=== PATIENT | female | born 1990 | race Caucasian/White ===

== ENCOUNTER 2018-02-05 21:16 | Inpatient (IN) | payer OTHER ==
[2018-02-06 01:05] VITALS: BMI 33.8
[2018-02-06] MEDS ORDERED: TUBERCULIN PPD 5 TU/0.1ML SYRINGE (IN PATIENT USE ONLY) ID ONE ×2 (01:14→09:00)
[2018-02-06] MEDS ORDERED: D5-1/4NS+20 MEQ KCL - 20 MEQ/1,000 ML INFUS.BAG IV ONE (02:16)
[2018-02-06] MEDS ORDERED: DEXTROSE 5%-LACTATED RINGERS 1,000 ML IV ONE (02:17)
[2018-02-06 02:21] LABS: BASO % 0.2 % (0-2.0); EOS % 0.3 % (0-4.5); HEMATOCRIT 36.9 % (32.4-45.2); LYMPH % 16.8 % (8-40); MCH 26.5 pg (25.7-33.7); MCHC 32.5 g/dl (32.0-36.0); MEAN CELL VOLUME 81.7 fl (80-96); MONO % 4.6 % (3.8-10.2); NEUT % 78.1 % (42.8-82.8); PLATELET COUNT 243 K/MM3 (134-434); RBC 4.52 M/mm3 (3.60-5.2); RDW 15.1 % (11.6-15.6); WHITE BLOOD COUNT 11.9 K/mm3 (4.0-10.0)
[2018-02-06] MEDS ORDERED: PROMETHAZINE HCL 25 MG/1 ML VIAL IVPUSH ONE (02:30)
[2018-02-06] MEDS ORDERED: BUTORPHANOL TARTRATE 1 MG/ML VIAL IVPUSH ONE (02:30)
[2018-02-06] MEDS ORDERED: DEXTROSE 5%-LACTATED RINGERS 1,000 ML IV SCH ×2 (02:36→13:15)
[2018-02-06 02:46] LABS: INR 0.92 (0.82-1.09); PROTHROMBIN TIME (PATIENT) 10.4 SEC (9.7-13.0)
[2018-02-06 02:49] LABS: ACTIVATED PTT 30.2 SECONDS (26.9-34.4)
[2018-02-06 02:55] LABS: ANION GAP 10 (8-16); BLOOD UREA NITROGEN 7 mg/dL (7-18); CALCIUM 8.5 mg/dL (8.5-10.1); CHLORIDE 107 mmol/L (98-107); CO2 22 mmol/L (21-32); CREATININE 0.5 mg/dL (0.55-1.02); GLUCOSE,RANDOM 87 mg/dL (74-106); POTASSIUM 3.7 mmol/L (3.5-5.1); SODIUM 139 mmol/L (136-145)
[2018-02-06] MEDS ORDERED: PROMETHAZINE HCL 25 MG/1 ML VIAL ONE (03:00)
[2018-02-06] MEDS ORDERED: BUTORPHANOL TARTRATE 1 MG/ML VIAL ONE ×2 (03:00)
[2018-02-06] MEDS ORDERED: ELECTROLYTE-148 SOLN 1,000 ML IV ONE (06:39)
[2018-02-06] MEDS ORDERED: ELECTROLYTE-148 SOLN 1,000 ML IV SCH (06:57)
[2018-02-06] MEDS ORDERED: NALOXONE HCL 0.4 MG/ML VIAL IVPUSH PRN (07:03)
[2018-02-06] MEDS ORDERED: BUPIVACAINE HCL/PF 0.25% (2.5MG/ML) 10 ML VIAL ONE (07:05)
[2018-02-06] MEDS ORDERED: LIDO 2%/EPI 1:200000 PRESRVFRE (20 ML SDVIAL) ONE (07:05)
[2018-02-06] MEDS ORDERED: FENTANYL/BUPIVACAINE/NS/PF - PCEA - 50 ML DISP.SYRIN EP ONE ×2 (07:06→11:20)
[2018-02-06] MEDS: FENTANYL/BUPIVACAINE/NS/PF - PCEA - 50 ML DISP.SYRIN EP SCH (07:25)
[2018-02-06] MEDS ORDERED: ePHEDrine SULFATE 50 MG/1 ML AMPULE ONE (07:27)
--- NOTE | 2018-02-06 09:34 | HP ---
Past Medical History - Primary Care Physician PCP:: Shakir Rice - Admission Chief Complaint: 27yo P0 with pregancy at EGA 40w1d admitted last night in early spontaneous labor with due to maternal exhaustion with multiple L&D visits. History of Present Illness: Pt with post term at EGA 40w1 who reports painful contractions x 2-3 days. GBS (-) Pt was initially given Stadol/Phenergan for pain mgt. The pt was then given an epidural at ~7:30am. The pt's FHR became tachycardic at about 8am and is still with baseline 180bpm History Source: Patient, Medical Record Limitations to Obtaining History: No Limitations - Past Medical History ...: 1 ...Para: 0 ...Term: 0 ...: 0 ...Spon : 0 ...Induced : 0 ...Multiple Gestation: 0 ...LMP: 04/23/17 ... Weeks Gestation by Dates: 40.1 ...EDC by Sono: 02/05/18 Heme/Onc: No: Anemia, B12 Deficiency, Bleeding Disorder, Cancer, Current Chemotherapy, Current Radiation Therapy, Hemochromatosis, Hypercoaguable State, Myeloproliferative Synd, Sickle Cell Disease, Sickle Cell Trait, Thrombocytopenia, Other Infectious Disease: No: AIDS, C-Diff, Herpes Zoster, HIV, MRSA, STD's, Tuberculosis, VREF, Other Psych: No: Addictions, Anxiety, Bipolar, Depression, Panic, Psychosis, Schizophrenia, Other Musculoskeletal: No: Bursitis, Chronic low back pain, Hemiparesis, Hemiplegia, Osteoarthritis, Paraplegia, Other Rheumatology: No: Fibromyalgia, Gout, Lupus, Rheumatoid Arthritis, Sarcoidosis, Vasculitis, Other ENT: No: Allergic Rhinitis, Sinusitis, Other Endocrine: No: Camden's Disease, Simpson's Disease, Diabetes Insipidus, Diabetes Mellitus, Hyperparathyroidism, Hyperthyroidism, Hypothyroidism, Osteopenia, SIADH, Other Dermatology: No: Basal Cell, Cellulitis, Eczema, Melanoma, Psoriasis, Squamous Cell, Other - Past Surgical History Past Surgical History: Yes: None Hx Myomectomy: No Hx Transabdominal Cerclage: No - Smoking History Smoking history: Never smoked Have you smoked in the past 12 months: No - Alcohol/Substance Use Hx Alcohol Use: No History of Substance Use: reports: None - Social History Usual Living Arrangement: Yes: With Spouse ADL: Independent History of Recent Travel: No Home Medications - Allergies Allergies/Adverse Reactions: Allergies Allergy/AdvReac Type Severity Reaction Status Date / Time No Known Allergies Allergy Verified 02/06/18 09:28 - Home Medications Home Medications: Ambulatory Orders Vit No.130/Iron/Folic [ Vitamins] 1 each PO DAILY 02/03/18 Family Disease History - Family Disease History Family History: Denies Review of Systems Findings/Remarks: Pt is comfortable s/p epidural - Review of Systems Constitutional: reports: No Symptoms Eyes: reports: No Symptoms HENT: reports: No Symptoms Neck: reports: No Symptoms Cardiovascular: reports: No Symptoms Respiratory: reports: No Symptoms Gastrointestinal: reports: No Symptoms Genitourinary: reports: No Symptoms Breasts: reports: No Symptoms Reported Musculoskeletal: reports: No Symptoms Integumentary: reports: No Symptoms Neurological: reports: No Symptoms Endocrine: reports: No Symptoms Hematology/Lymphatic: reports: No Symptoms Psychiatric: reports: No Symptoms Pain Intensity: 0 Physical Exam - Maternity Vital Signs: Vital Signs Temperature 98.1 F 02/06/18 06:00 Pulse Rate 82 02/06/18 07:45 Respiratory Rate 18 02/06/18 07:45 Blood Pressure 102/47 02/06/18 07:45 O2 Sat by Pulse Oximetry (%) 99 02/06/18 07:45 Constitutional: Yes: Well Nourished, No Distress, Calm Eyes: Yes: WNL, Conjunctiva Clear, EOM Intact HENT: Yes: WNL, Atraumatic, Normocephalic Neck: Yes: WNL, Supple, Trachea Midline Cardiovascular: Yes: WNL, Regular Rate and Rhythm Lungs: Clear to auscultation, Normal air movement - Abdominal Exam/OB Fundal Height: 40 Number of Fetuses: Single Presentation: Vertex Contractions: Yes Regularity: Regular Intensity: Mild/Mod (q4min) Monitor Mode: Internal Heart Rate (range): 180 Heart Rate Location: Midline Category: I Accelerations: None Decelerations: None - Vaginal Exam/OB Vaginal Bleediing: No Speculum Exam: No Dilatation (cm): 2 Effacement (%): 80 Amniotic Membrane Status: Ruptured (AROM) Amniotic Fluid: Yes: Meconium Stained Meconium: Light Presentation: Vertex/Position Station: -3 (Adequate pelvimetry) - Physical Exam Musculoskeletal: Yes: WNL Extremities: Yes: WNL Edema: Yes Edema: LLE: Trace, RLE: Trace Integumentary: Yes: WNL Deep Tendon Reflex Grade: Normal +2 ...Motor Strength: WNL Psychiatric: Yes: WNL, Alert, Oriented - Labs Lab Results: CBC, BMP 02/06/18 01:00 02/06/18 01:00 Hemorrhage Risk Assessment - Risk Factors Medium Risk Factors: Yes: None High Risk Factors: Yes: None Risk Score: 1 Risk Level: Medium Risk Imaging - Results Ultrasound: Report Reviewed Other: Other (FHR with baseline 180bpm, moderate variability, occasional accels , no decels) Assessment/Plan 27yo P0 with at EGA 40w1d admitted last night in early spontaneous labor due to maternal exhaustion with multiple L&D visits. 1. Patient is comfortable with epidural 2. Fetus with tachycardia, category II tracing. AROM was done and light meconium was noted. FSE was placed. The pt was given IV fluid bolus and O2 by mask. Plan to monitor for labor progress and tracing. If the FHT remains tachycardic and there is no labor progress, plan to offer a C/S. 3. Labor in in latent phase.
--- NOTE | 2018-02-06 12:11 | PN ---
Progress Note (short form) - Note Progress Note: cx 3 cm 80 vx -3 mr, fhr 180, mild variable , advised c/s in view of persistent tachycardia, rba discussed
[2018-02-06] MEDS ORDERED: ceFAZolin SODIUM 1 GM VIAL ONE (12:17)
[2018-02-06] MEDS ORDERED: morphine SULFATE/Preservative Free 0.5 MG/ML (1cc Syringe) ONE (12:17)
[2018-02-06] MEDS ORDERED: DEXAMETHASONE SOD PHOSPHATE 4 MG/1 ML VIAL ONE (12:48)
[2018-02-06] MEDS ORDERED: diphenhydrAMINE HCL 25 MG CAPSULE (FP) PO PRN (13:06)
[2018-02-06] MEDS ORDERED: BENZOCAINE 20% 57 GM BOTTLE TP PRN (13:06)
[2018-02-06] MEDS ORDERED: METHYLERGONOVINE MALEATE 0.2 MG/1 ML AMP IM PRN (13:06)
[2018-02-06] MEDS ORDERED: IBUPROFEN 800 MG/8 ML IJ IVPB PRN (13:06)
[2018-02-06] MEDS ORDERED: BENZOCAINE 28 GM HEMORRHOIDAL OINTMENT PR PRN (13:06)
[2018-02-06] MEDS ORDERED: oxyCODONE HCL 5 MG TABLET PO PRN (13:06)
[2018-02-06] MEDS ORDERED: WITCH HAZEL 50% (TUCKS) 40 PAD/JAR PAD TP PRN (13:06)
[2018-02-06] MEDS ORDERED: OXYTOCIN 20 UNITS in 0.9% NS 20 UNIT/1,000 ML INFUS.BAG IV SCH (13:15)
[2018-02-06] MEDS ORDERED: ONDANSETRON 4 MG/2 ML VIAL IVPUSH PRN (13:38)
[2018-02-06 13:45] LABS: ARTERIAL BLOOD GAS BASE EXCESS -0.5 meq/l (-2-2); ARTERIAL BLOOD GAS PCO2 57.8 mmHg (35-45); ARTERIAL BLOOD GAS PO2 11.2 mmHg (80-100); ARTERIAL BLOOD GAS pH 7.29 (7.35-7.45)
--- NOTE | 2018-02-06 13:46 | OP ---
DATE OF OPERATION: 02/06/2018 PREOPERATIVE DIAGNOSES: , 39 weeks, nonreassuring heart rate, tachycardia. POSTOPERATIVE DIAGNOSES: , 39 weeks, nonreassuring heart rate, tachycardia. PROCEDURE: Primary low-segment transverse section. SURGEON: Delia Vallejo MD ASSOCIATE DIRECTOR OF NURSING: HUMBERTO Rivera ANESTHESIA: Dr. Andriy MD, spinal. OPERATIVE DESCRIPTION: Patient was taken to the operating room and under adequate spinal anesthesia, abdomen and perineum were prepped and draped. Pfannenstiel abdominal skin incision was made. Abdominal wall was cut layer by layer until peritoneum was exposed and incised. Upon entering the abdominal cavity, lower uterine segment was identified and the uterovesical fold of peritoneum established. The bladder was pushed down. Then with the low blade of the [place] retractor in the pelvis, a low transverse incision was made. The incision was extended laterally. Amniotic sac was entered. Meconium amniotic fluid noted. Head delivered. Nasopharynx suctioned. Head delivered from right occiput transverse position. Live baby boy was delivered. Apgars 9 and 9. Placenta was delivered manually. Uterine cavity was cleared of all remaining tissue. Uterine incision was closed in 2 layers, first layer with 0 Biosyn continuously, and the second layer with 0 Biosyn imbricating the first layer. Bladder flap was closed with 0 Biosyn continuous suture. Both tubes and ovaries were checked and normal. No active bleeding was seen. All the lap pads, sponge, and instrument counts were correct. The, peritoneum was closed with 0 Biosyn continuous suture. Muscles were brought together with interrupted suture of 0 Biosyn. Fascia was closed with 0 Biosyn continuous suture, subcutaneous fat with interrupted suture of 0 Biosyn, and skin was closed with 3-0 Vicryl subcuticular suture. Patient tolerated the procedure well, left OR in good condition. DELIA VALLEJO M.D. [id number]
[2018-02-06 13:52] LABS: VENOUS PC02 45.5 mmHg (38-52); VENOUS PH 7.36 (7.32-7.42); VENOUS PO2 25.6 mmHg (28-48)
--- NOTE | 2018-02-06 15:40 | SURG ---
Surgery Sign Maintenance Note Sign Maintenance: Elbert Tran PA-C Date of Service: 02/06/18 Diagnosis: EGA 40weeks and 1day, persistent tachycardia Procedure: section I was present for the entirety of the operative procedure. For further detail, please refer to operative report. Visit type - Case Type Case Type: Scheduled - New patient This patient is new to me today: Yes Date on this admission: 02/06/18
[2018-02-06] MEDS ORDERED: CEFAZOLIN 1 GM in DEXTROSE 5%-WATER 100 ML IVPB SCH (18:00)
[2018-02-06] MEDS: CEFAZOLIN 1 GM in DEXTROSE 5%-WATER - 50 ML IVPB SCH (18:15)
[2018-02-07] MEDS: CEFAZOLIN 1 GM in DEXTROSE 5%-WATER - 50 ML IVPB SCH (01:14)
[2018-02-07] MEDS ORDERED: OXYTOCIN 20 UNITS in 0.9% NS 20 UNIT/1,000 ML INFUS.BAG IV ONE (04:23)
--- NOTE | 2018-02-07 07:54 | PN ---
Post Progress Note - Subjective Subjective: No complaints Post Day: 1 Type of Delivery: Primary C/S Vital Signs: Vital Signs Temperature 99.2 F 02/07/18 05:12 Pulse Rate 93 H 02/07/18 05:12 Respiratory Rate 20 02/07/18 06:00 Blood Pressure 94/50 02/07/18 05:12 O2 Sat by Pulse Oximetry (%) 100 02/06/18 14:15 Breast Exam: Yes: Soft Uterus: Yes: Fundus Firm, Fundus below umbilicus, Non-tender Incision: Yes: Dressing dry and intact Abdomen/GI: Yes: Abdomen soft, Passing flatus, Tolerating PO Lochia: Yes: Rubra Lochia, amount: Small Extremities: Yes: Calves non-tender Perineum: Yes: Intact Activity: Ambulating - Labs Labs: CBC WBC 11.9 K/mm3 (4.0-10.0) H 02/06/18 01:00 RBC 4.52 M/mm3 (3.60-5.2) 02/06/18 01:00 Hgb 12.0 GM/dL (10.7-15.3) 02/06/18 01:00 Hct 36.9 % (32.4-45.2) 02/06/18 01:00 MCV 81.7 fl (80-96) 02/06/18 01:00 MCH 26.5 pg (25.7-33.7) 02/06/18 01:00 MCHC 32.5 g/dl (32.0-36.0) 02/06/18 01:00 RDW 15.1 % (11.6-15.6) 02/06/18 01:00 Plt Count 243 K/MM3 (134-434) 02/06/18 01:00 MPV 8.0 fl (7.5-11.1) 02/06/18 01:00 Neutrophils % 78.1 % (42.8-82.8) 02/06/18 01:00 Lymphocytes % 16.8 % (8-40) 02/06/18 01:00 Monocytes % 4.6 % (3.8-10.2) 02/06/18 01:00 Eosinophils % 0.3 % (0-4.5) 02/06/18 01:00 Basophils % 0.2 % (0-2.0) 02/06/18 01:00 Nucleated RBC % 0 % (0-0) 02/06/18 01:00 Assessment/Plan 27 yo P1 s/p primary LT C/S, doing well stable, afebrile. The pt is asymptomatic for s/sxs of anemia. care instructions reviewed. Continue routine postop care. Ambulation encouraged.
--- NOTE | 2018-02-07 08:05 | PN ---
Progress Note (short form) - Note Progress Note: Anesthesia Post op/Pain Pt seen and examined S:Alert and awake comfortable O: Vital Signs Temperature 99.2 F 02/07/18 05:12 Pulse Rate 93 H 02/07/18 05:12 Respiratory Rate 20 02/07/18 06:00 Blood Pressure 94/50 02/07/18 05:12 O2 Sat by Pulse Oximetry (%) 100 02/06/18 14:15 CBC, BMP 02/06/18 01:00 02/06/18 01:00 A/P: s/p c section Doing well post op Continue current care Hossein Castro MD
[2018-02-07] MEDS ORDERED: ACETAMINOPHEN 325 MG TABLET (FP) ONE (08:27)
[2018-02-07] MEDS: IBUPROFEN 600 MG TABLET (FP) PO PRN ×4 (08:36→21:50)
[2018-02-07] MEDS: SIMETHICONE 80 MG TAB.CHEW (FP) PO PRN ×4 (08:36→21:50)
[2018-02-07] MEDS: ACETAMINOPHEN 325 MG TABLET (FP) PO PRN ×2 (08:39→14:27)
[2018-02-07 10:57] LABS: BASO % 0.2 % (0-2.0); EOS % 0.2 % (0-4.5); HEMATOCRIT 30.8 % (32.4-45.2); HEMOGLOBIN 10.1 GM/dL (10.7-15.3); LYMPH % 14.4 % (8-40); MCH 26.8 pg (25.7-33.7); MCHC 32.7 g/dl (32.0-36.0); MEAN CELL VOLUME 82.1 fl (80-96); MEAN PLT VOLUME 7.5 fl (7.5-11.1); MONO % 6.2 % (3.8-10.2); PLATELET COUNT 195 K/MM3 (134-434); RBC 3.76 M/mm3 (3.60-5.2); RDW 15.4 % (11.6-15.6); WHITE BLOOD COUNT 13.8 K/mm3 (4.0-10.0)
[2018-02-07] MEDS ORDERED: BISACODYL 10 MG SUPP.RECT PR PRN (13:07)
[2018-02-07] MEDS ORDERED: DIPHTH,PERTUSS(ACELL),TET 0.5 ML DISP.SYRIN IM ONE (14:00)
[2018-02-07] MEDS: oxyCODONE HCL 5 MG TABLET PO PRN ×2 (16:53→21:50)
[2018-02-07] MEDS: FENTANYL/BUPIVACAINE/NS/PF - PCEA - 50 ML DISP.SYRIN EP SCH (19:49)
[2018-02-08] MEDS: oxyCODONE HCL 5 MG TABLET PO PRN ×4 (07:44→22:58)
[2018-02-08] MEDS: SIMETHICONE 80 MG TAB.CHEW (FP) PO PRN ×4 (07:44→22:57)
[2018-02-08] MEDS: IBUPROFEN 600 MG TABLET (FP) PO PRN ×4 (07:45→22:57)
--- NOTE | 2018-02-08 10:01 | PN ---
Post Progress Note - Subjective Subjective: Patient without acute complaints. Reports tolerating oral intake without nausea or vomiting. Ambulating without dizziness. Denies fevers or chills. Pain well controlled with oral pain medication. without difficulty. Passing flatus. Post Day: 2 Type of Delivery: Primary C/S Vital Signs: Vital Signs Temperature 99.4 F 02/08/18 09:28 Pulse Rate 106 H 02/08/18 09:28 Respiratory Rate 18 02/08/18 09:28 Blood Pressure 119/68 02/08/18 09:28 O2 Sat by Pulse Oximetry (%) 100 02/06/18 14:15 Breast Exam: Yes: Soft Uterus: Yes: Fundus Firm Incision: Yes: Sutures intact. No: Redness, Oozing Abdomen/GI: Yes: Abdomen soft, Passing flatus, Tolerating PO. No: Abdominal Distention, Tender Lochia: Yes: Serosa Lochia, amount: Small Extremities: Yes: Calves non-tender. No: Edema Activity: Ambulating - Labs Labs: CBC WBC 13.8 K/mm3 (4.0-10.0) H 02/07/18 10:00 RBC 3.76 M/mm3 (3.60-5.2) 02/07/18 10:00 Hgb 10.1 GM/dL (10.7-15.3) L D 02/07/18 10:00 Hct 30.8 % (32.4-45.2) L D 02/07/18 10:00 MCV 82.1 fl (80-96) 02/07/18 10:00 MCH 26.8 pg (25.7-33.7) 02/07/18 10:00 MCHC 32.7 g/dl (32.0-36.0) 02/07/18 10:00 RDW 15.4 % (11.6-15.6) 02/07/18 10:00 Plt Count 195 K/MM3 (134-434) 02/07/18 10:00 MPV 7.5 fl (7.5-11.1) 02/07/18 10:00 Neutrophils % 79.0 % (42.8-82.8) 02/07/18 10:00 Lymphocytes % 14.4 % (8-40) 02/07/18 10:00 Monocytes % 6.2 % (3.8-10.2) 02/07/18 10:00 Eosinophils % 0.2 % (0-4.5) 02/07/18 10:00 Basophils % 0.2 % (0-2.0) 02/07/18 10:00 Nucleated RBC % 0 % (0-0) 02/07/18 10:00 Assessment/Plan 27 yo POD # 2 s/p primary CD, afebrile, vital signs stable, doing well 1. Continue routine postoperative care. 2. Encourage ambulation and incentive spirometer use 3. Continue oral pain medication 4. Anticipate discharge home postoperative day #3 or #4
[2018-02-08] MEDS: SENNOSIDES/DOCUSATE COMBO (SENNA PLUS) TABLET (UD) PO PRN (22:57)
[2018-02-08] MEDS: ACETAMINOPHEN 325 MG TABLET (FP) PO PRN (22:58)
[2018-02-09] MEDS: SIMETHICONE 80 MG TAB.CHEW (FP) PO PRN ×4 (03:54→20:57)
[2018-02-09] MEDS: oxyCODONE HCL 5 MG TABLET PO PRN ×2 (03:54→08:22)
[2018-02-09] MEDS: ACETAMINOPHEN 325 MG TABLET (FP) PO PRN ×3 (03:55→20:55)
[2018-02-09] MEDS: IBUPROFEN 600 MG TABLET (FP) PO PRN ×4 (03:55→20:57)
--- NOTE | 2018-02-09 06:43 | PN ---
Progress Note (short form) - Note Progress Note: pod 3 no c/o voids ok, passing gas CBC, BMP 02/07/18 10:00 02/06/18 01:00 Last Vital Signs Temp Pulse Resp BP Pulse Ox 98.1 F 97 H 18 116/64 100 02/08/18 22:00 02/08/18 22:00 02/08/18 22:00 02/08/18 22:00 02/06/18 14:15 abdomen soft, no distension, no cva uterus firm, non tender incision dry, clean no calf tenderness lochia mild plan ambulate, cbc today plan for d/c home in am
[2018-02-09 07:47] LABS: BASO % 0.4 % (0-2.0); HEMATOCRIT 31.2 % (32.4-45.2); HEMOGLOBIN 10.3 GM/dL (10.7-15.3); LYMPH % 26.9 % (8-40); MCH 27.4 pg (25.7-33.7); MCHC 32.9 g/dl (32.0-36.0); MEAN CELL VOLUME 83.3 fl (80-96); MEAN PLT VOLUME 7.2 fl (7.5-11.1); MONO % 6.1 % (3.8-10.2); NEUT % 64.6 % (42.8-82.8); PLATELET COUNT 213 K/MM3 (134-434); RBC 3.75 M/mm3 (3.60-5.2); RDW 14.9 % (11.6-15.6)
--- NOTE | 2018-02-09 17:47 | PN ---
Progress Note (short form) - Note Progress Note: Patient states desires circumcision for . Discussed risks including infection, bleeding, damage to tip of penis, and unsatisfactory result, resulting in surgical repair or repeat circumcision. Patient expressed understanding and consents to procedure. Reviewed infants chart, normal genitalia per roofing foreman, Dr. Gonzalez
--- NOTE | 2018-02-09 17:52 | DS ---
Physical Exam-PHYSICAL THERAPY AIDES TEACHER Vital Signs: Vital Signs Temperature 98.0 F 02/09/18 07:20 Pulse Rate 93 H 02/09/18 07:20 Respiratory Rate 20 02/09/18 07:20 Blood Pressure 113/64 02/09/18 07:20 O2 Sat by Pulse Oximetry (%) 100 02/06/18 14:15 Labs: CBC, BMP 02/09/18 07:10 02/06/18 01:00 Delivery - Delivery Type of Anesthesia: Epidural, Spinal Episiotomy/Laceration: None EBL (cc): 500 Delivery, Single - Stages of Labor Date 1st Stage Initiatied: 02/05/18 Time 1st Stage Initiated: 18:00 Date of Delivery: 02/06/18 Time of Delivery: 12:40 Time Placenta Delivered: 12:41 - Condition of Dog Races Manager/Lamp Decorator Present: Yes Name: Fiordaliza Brooks Gender: Male Weight: 8 lb 10 oz Position: Right, OT - 1 Minute Total Score: 9 5 Minutes Total Score: 9 - [place] Feeding Plan Initial Plan: Elected not to breastfeed exclusively throughout hospitalization Discharge Summary Reason For Visit: LABOR ADMIT Current Active Problems S/P primary low transverse (Acute) Procedures: Principal: delivery Hospital Course: Patient was admitted in labor. Received epidural for pain control noted category II FHT. Patient underwent CD for nonreassuring heart tracing. POD # 1 patient ambulated, voiding, passing gas, tolerating oral intake and with adequate pain control. Noted to have mild asymptomatic anemia She fulfilled all criteria for discharge POD #3 Condition: Good - Instructions Diet, Activity, Other Instructions: Physical activity Resume your normal everyday activity as tolerated no heavy lifting or exercise until seen by your surgeon. You may walk unlimited zane of and climb stairs. You may resume driving the car when you feel safe and comfortable behind the wheel. No sexual activity as instructed. Wound care If you have a bandage, leave it on, and keep dry for 48-72 hours. After that time discard the outer bandage. If they are tapes on the skin under the out of bandage leave them in place. They will peel off in the next 7 to 10 days. Do Not Peel them off. You may shower the day after surgery. If there are tapes present on the skin, you may shower over them. Diet There are no dietary restrictions. Eat healthy, high-fiber foods. Drink 6 to 8 glasses of liquid each day. This will assist in keeping your bowels are regular. Pain management You may take Tylenol or acetaminophen or Ibuprofen (for example, Motrin, Advil etc.) from my pain prescription medication is ordered should be taken as prescribed for moderate to severe pain. Call MD for any of the following: Severe pain not relieved by medication Fever of 101 or higher Excessive bleeding or drainage on dressing Inability to urinate Referrals: Matthew Graham MD [Staff Physician] - Disposition: HOME - Home Medications Comprehensive Discharge Medication List: Ambulatory Orders Vit No.130/Iron/Folic [ Vitamins] 1 each PO DAILY 02/03/18
[2018-02-09] MEDS: SENNOSIDES/DOCUSATE COMBO (SENNA PLUS) TABLET (UD) PO PRN (20:55)
[2018-02-10] MEDS: SIMETHICONE 80 MG TAB.CHEW (FP) PO PRN ×2 (05:00→10:20)
[2018-02-10] MEDS: IBUPROFEN 600 MG TABLET (FP) PO PRN ×2 (05:00→10:20)
[2018-02-10] MEDS: ACETAMINOPHEN 325 MG TABLET (FP) PO PRN ×2 (05:01→10:20)
[2018-02-10 08:28] VITALS: BP 102/71; PULSE 79; TEMP 98.6
--- NOTE | 2018-02-16 16:56 | PATH ---
Surgical Pathology Report Patient Name: SARA TAY Med. Rec. #: [id number] /Age/Gender: 1990 (Age: 27) / F Account: [id number] Location: [facility] OBS/RESIDENTIAL CAREGIVER Taken: 02/06/2018 Received: 02/07/2018 Reported: 02/16/2018 Physicians: Charisse Torres Specimen(s) Received PLACENTA Clinical History 40.1 weeks tachycardia Final Diagnosis PLACENTA, SECTION: 415 G THIRD TRIMESTER PLACENTA WITH TRIVASCULAR UMBILICAL CORD AND PLACENTAL MEMBRANES WITH MECONIUM-LADEN MACROPHAGES. Electronically Signed Alie Dunbar M.D. Gross Description The specimen is received fresh labeled placenta and is a 415 gram, 14 x 13 x 3 cm. placenta with attached membranes and umbilical cord. The attached membranes are green and mucoid and insert marginally. The umbilical cord measures 28 cm. in length and averages 1.5 cm. in diameter. The cord inserts eccentrically, 3 cm. to the nearest margin. No true knots or strictures are identified. Cut surface of the umbilical cord reveals 3 vessels. The surface is with green discoloration and a normal branching pattern of vessels. The maternal surface is red-brown with focal defects. Sectioning reveals red-brown, spongy parenchyma. No lesions are identified. [employer]oter sections are submitted in three cassettes as follows: 1- membrane rolls and umbilical cord; 2-3- full thickness sections of placenta. [facility]/02/15/2018 [facility]/02/15/2018
== END 2018-02-10 13:30 | disposition home or self-care (01) | DRG 540 ==
LOC: JDEL 21:16 → JLDR 02-06 00:30 → J3W 02-06 14:40
PROVIDERS: ADMIT Obstetrics & Gynecology; ATTEND Obstetrics & Gynecology
PROC: 10D00Z1 Extraction of Products of Conception, Low, Open Approach (ICD-10-PCS; principal; 2018-02-06)
DX: O76 Abnormality in fetal heart rate and rhythm complicating labor and delivery (principal); O75.81 Maternal exhaustion complicating labor and delivery; O48.0 Post-term pregnancy; Z3A.40 40 weeks gestation of pregnancy; O99.02 Anemia complicating childbirth; D64.9 Anemia, unspecified; Z37.0 Single live birth
CPT/HCPCS: 36415; 36600; 80048; 82803; 85025; 85610; 85730; 86593; 86850; 86900; 86901; 88307-TC; 90715

== ENCOUNTER 2018-02-20 05:39 | Emergency (ER) | payer OTHER ==
[2018-02-20 05:54] VITALS: BMI 29.8
--- NOTE | 2018-02-20 06:21 | PDOC ---
History of Present Illness - General Chief Complaint: Revisit,Wound Recheck Stated Complaint: S/P C/SECTION,BLEEDING WOUND Time Seen by Provider: 02/20/18 06:00 History Source: Patient - History of Present Illness Initial Comments: 02/20/18 06:16 27 year old s/p 1 week ago steri strips were removed by pineapple plantation manager Dr. mercado. patient noted serosanguionois drainage from wound site. as per patient started wearing Girdle and noted increased redness and tenderness at the site and lower abdominal area. denies fever/ chills. + breast feeding 02/20/18 06:21 Past History - Past Medical History Allergies/Adverse Reactions: Allergies Allergy/AdvReac Type Severity Reaction Status Date / Time No Known Allergies Allergy Verified 02/20/18 05:53 Home Medications: Ambulatory Orders Vit No.130/Iron/Folic [ Vitamins] 1 each PO DAILY 02/03/18 Oxycodone HCl/Acetaminophen [Percocet 5-325 mg Tablet -] 1 tab PO Q6H #15 tab MDD 4 02/09/18 Asthma: No Cancer: No Cardiac Disorders: No Diabetes: No HTN: No Seizures: No Thyroid Disease: No - Suicide/Smoking/Psychosocial Hx Smoking History: Never smoked Have you smoked in the past 12 months: No Information on smoking cessation initiated: No Hx Alcohol Use: No Drug/Substance Use Hx: No Hx Substance Use Treatment: No *Physical Exam - Vital Signs Last Vital Signs Temp Pulse Resp BP Pulse Ox 98.5 F 119 H 20 100/72 97 02/20/18 05:52 02/20/18 05:52 02/20/18 05:52 02/20/18 05:52 02/20/18 05:52 - Physical Exam General Appearance: Yes: Appropriately Dressed Gastrointestinal/Abdominal: positive: Normal Bowel Sounds, Soft Extremity: positive: Erythema, Other (no wound dehiscence / eviseration notes. + serosanguinous drainage and erythema at the surgical wound) Integumentary: positive: Normal Color, Dry, Warm Neurologic: positive: Fully Oriented, Alert, Normal Mood/Affect Medical Decision Making - Medical Decision Making 02/20/18 06:[address] Mercado . patient pending evaluation by Dr. mercado. *DC/Admit/Observation/Transfer Diagnosis at time of Disposition: section wound complication - Discharge Dispostion Condition at time of disposition: Fair - Referrals - Patient Instructions - Post Discharge Activity
[2018-02-20 07:42] LABS: BASO % 0.4 % (0-2.0); EOS % 0.7 % (0-4.5); HEMOGLOBIN 12.9 GM/dL (10.7-15.3); LYMPH % 18.3 % (8-40); MCH 26.8 pg (25.7-33.7); MCHC 33.1 g/dl (32.0-36.0); MEAN CELL VOLUME 80.9 fl (80-96); MONO % 5.2 % (3.8-10.2); NEUT % 75.4 % (42.8-82.8); PLATELET COUNT 375 K/MM3 (134-434); RBC 4.82 M/mm3 (3.60-5.2); RDW 14.6 % (11.6-15.6); WHITE BLOOD COUNT 11.2 K/mm3 (4.0-10.0)
[2018-02-20] MEDS ORDERED: CLINDAMYCIN 600MG PREMIX IVPB 600 MG/50 ML BAG IVPB ONE ×2 (07:52→08:07)
[2018-02-20] MEDS ORDERED: SODIUM CHLORIDE 1,000 ML IV STA (07:52)
--- NOTE | 2018-02-20 07:56 | PDOC ---
*Physical Exam - Vital Signs Last Vital Signs Temp Pulse Resp BP Pulse Ox 98.5 F 119 H 20 100/72 97 02/20/18 05:52 02/20/18 05:52 02/20/18 05:52 02/20/18 05:52 02/20/18 05:52 - Physical Exam General Appearance: Yes: Nourished, Appropriately Dressed. No: Apparent Distress HEENT: positive: Normal Voice Neck: positive: Supple Respiratory/Chest: negative: Respiratory Distress Gastrointestinal/Abdominal: positive: Soft, Other (+serosangunous drainage to csection site w/ extensive surrounding erythema extending almost to umbilicus w / increased warmth, no sig ttp, possible minimal induration to site) Musculoskeletal: negative: CVA Tenderness Integumentary: positive: Dry, Warm Neurologic: positive: Fully Oriented, Alert, Normal Mood/Affect ED Treatment Course - LABORATORY CBC & Chemistry Diagram: 02/20/18 06:00 02/20/18 06:00 - ADDITIONAL ORDERS Additional order review: 02/20/18 06:00 RBC 4.82 D MCV 80.9 MCHC 33.1 RDW 14.6 MPV 7.0 L Neutrophils % 75.4 Lymphocytes % 18.3 D Monocytes % 5.2 Eosinophils % 0.7 Basophils % 0.4 Medical Decision Making - Medical Decision Making 02/20/18 07:53 Pt signed out to me at 7 AM by SRAVANI Hess 27 yo F, status post [address] Mercado, now coming in with serosanguineous drainage from wound and increased erythema x several days. Denies any worsening pain, fever or chills. Of note, patient tachycardic to 119 in ER with white count of 11. I ordered IV fluids and antibiotics at this time. Dr. Mercado was made aware by prior ER team, and patient pending evaluation by Charisse 02/20/18 07:54 02/20/18 08:07 Pt and evaluated by Dr. Mercado who agrees with dose of IV antibiotics in ER, req clinda and gentamicin. States mild induration most likely seroma and did collect wound culture. States patient can be discharged on Augmentin or Keflex to follow up in office tomorrow 02/20/18 08:47 Pt s/p completion of antibiotics in ED. States she feels well with no pain at this time. Rpt vitals improved. Stable for discharge with antibiotics. Patient to follow-up with Dr. Graham the a.m. Strict return precautions given *DC/Admit/Observation/Transfer Diagnosis at time of Disposition: section wound complication - Discharge Dispostion Disposition: HOME Condition at time of disposition: Improved - Prescriptions Prescriptions: Amoxicillin/Potassium Clav [Augmentin 875-125 Tablet] 1 each PO BID #14 tablet - Referrals Referrals: Carina Viera MD [Primary Care Provider] - - Patient Instructions Printed Discharge Instructions: Cellulitis Additional Instructions: Take antibiotics as prescribed and follow-up with Dr. Graham in office tomorrow If symptoms worsen, such as worsening pain, redness, fever or chills, return to ER immediately - Post Discharge Activity
[2018-02-20 08:12] LABS: CHLORIDE 105 mmol/L (98-107); POTASSIUM 4.8 mmol/L (3.5-5.1); SODIUM 139 mmol/L (136-145)
[2018-02-20 08:35] LABS: ALK PHOS 83 U/L (45-117); ANION GAP 9 (8-16); BILIRUBIN,TOTAL 0.3 mg/dL (0.2-1.0); BLOOD UREA NITROGEN 12 mg/dL (7-18); CALCIUM 9.4 mg/dL (8.5-10.1); CO2 25 mmol/L (21-32); CREATININE 0.5 mg/dL (0.55-1.02); GLUCOSE,RANDOM 93 mg/dL (74-106); SGOT/AST 14 U/L (15-37); SGPT/ALT 18 U/L (12-78); TOT PROT 7.1 g/dl (6.4-8.2)
[2018-02-20] MEDS ORDERED: GENTAMICIN INJECTION 350 MG in DEXTROSE 5%-WATER - 250 ML IVPB SCH (08:45)
[2018-02-20] MEDS ORDERED: GENTAMICIN INJECTION 350 MG in DEXTROSE 5%-WATER - 250 ML IVPB ONE (09:30)
[2018-02-20 10:31] VITALS: BP 104/67; PULSE 81; TEMP 97.8
== END 2018-02-20 11:00 | disposition home or self-care (01) ==
LOC: JER 05:39
PROC: 3E03329 Introduction of Other Anti-infective into Peripheral Vein, Percutaneous Approach (ICD-10-PCS; principal; 2018-02-20)
PROC: 3E0337Z Introduction of Electrolytic and Water Balance Substance into Peripheral Vein, Percutaneous Approach (ICD-10-PCS; 2018-02-20)
DX: O86.0 Infection of obstetric surgical wound (principal)
CPT/HCPCS: 36415; 80053; 85025; 87040; 87070; 87205; 96361; 96365; 96367; 99283-25; J7030